=== PATIENT | male | born 1970 | race African-American/Black ===

== ENCOUNTER 2017-12-21 09:00 | Inpatient (IN) | payer BC ==
[~2017-12-21] VITALS: Ht 172.7 cm; Wt 86.6 kg
[2017-12-21] MEDS ORDERED: SODIUM CHLORIDE FLUSH 10ML SYR IVF ONE (09:30)
[2017-12-21] MEDS ORDERED: SODIUM CHLORIDE 0.9% 1,000ML IVBOLUS ONE (09:30)
[2017-12-21] MEDS ORDERED: HYDROmorphone 2 MG/ML, 1ML IVPush PRN (09:30)
[2017-12-21] MEDS ORDERED: HYDROmorphone 1 MG/ML, 1ML ONE (09:42)
[2017-12-21 10:10] LABS: BASOPHILS % (AUTO) 0 % (0-1); EOSINOPHILS # (AUTO) 0.02 x10^3/uL (0-0.4); EOSINOPHILS % (AUTO) 0 % (1-7); LYMPHOCYTES # (AUTO) 1.08 x10^3/uL (1-3.4); LYMPHOCYTES % (AUTO) 10 % (22-44); MD NO; MEAN CORPUSCULAR HGB CONC 33.9 g/dL (33.2-36.2); MEAN CORPUSCULAR VOLUME 85.6 fL (81-97); MEAN PLATELET VOLUME 9.5 fL (7.4-10.4); MONOCYTES # (AUTO) 0.96 x10^3/uL (0.2-0.8); MONOCYTES % (AUTO) 8 % (2-9); NEUTROPHILS % (AUTO) 82 % (42-75); PLATELET COUNT 225 x10^3/uL (130-400); RED BLOOD COUNT 5.02 x10^6/uL (4.38-5.82); RED CELL DISTRIBUTION WIDTH 13.2 % (9.4-14.8)
[2017-12-21 10:20] LABS: ALANINE AMINOTRANSFERASE 42 U/L (12-78); ALBUMIN 3.7 g/dL (3.4-5.0); ANION GAP 7 mmol/L (5-15); CALCIUM 8.8 mg/dL (8.5-10.1); CHLORIDE 105 mmol/L (98-107); CREATININE 1.21 mg/dL (0.7-1.3)
[2017-12-21 10:22] LABS: ALKALINE PHOSPHATASE 149 U/L (45-117); BILIRUBIN,TOTAL 0.7 mg/dL (0.2-1.0); TOTAL PROTEIN 8.5 g/dL (6.4-8.2)
[2017-12-21 10:30] LABS: CULTURE INDICATED? YES; MICROSCOPIC INDICATED
[2017-12-21] MEDS ORDERED: OMNIPAQUE 350 MG/ML, 100ML BOTTLE ONE (11:02)
[2017-12-21] MEDS ORDERED: AMLO10TA2 PO (12:19)
[2017-12-21] MEDS ORDERED: FENTANYL PF 100 MCG/2ML ONE (14:54)
[2017-12-21] MEDS ORDERED: MIDAZOLAM 1 MG/ML, 5ML ONE (14:55)
[2017-12-21] MEDS ORDERED: NALOXONE 1 MG/ML, 2ML ONE (14:55)
[2017-12-21] MEDS ORDERED: FLUMAZENIL 0.1 MG/1 ML, 5ML ONE (14:55)
[2017-12-21] MEDS ORDERED: ACETAMINOPHEN 325 MG TABLET PO PRN (15:00)
[2017-12-21] MEDS ORDERED: POLYETHYLENE GLYCOL 17 GM PACKET PO PRN (15:00)
[2017-12-21] MEDS ORDERED: DOCUSATE 100 MG CAPSULE PO PRN (15:00)
[2017-12-21] MEDS ORDERED: MORPHINE SULFATE 4 MG/ML, 1ML IVPush PRN (15:00)
[2017-12-21] MEDS ORDERED: LABETALOL 5MG/ML, 20ML IVPush PRN (15:00)
[2017-12-21] MEDS ORDERED: BISACODYL 10 MG SUPP PR PRN (15:00)
[2017-12-21] MEDS ORDERED: ONDANSETRON ODT 4 MG PO PRN (15:00)
[2017-12-21] MEDS ORDERED: LIDOCAINE-MPF 1%, 5ML ONE (15:08)
[2017-12-21] MEDS ORDERED: CEFTRIAXONE PMX 1GM/50ML 50 ML ONE (15:10)
[2017-12-21 16:00] VITALS: BP 165/78
[2017-12-21] MEDS: SODIUM CHLORIDE 0.9% 1,000 ML IV SCH ×2 (16:18→23:00)
[2017-12-21] MEDS: CEFTRIAXONE PMX 1GM/50ML 50 ML IV SCH (16:19)
[2017-12-21] MEDS: HYDROcodone/APAP 5/325 TABLET PO PRN ×3 (16:37→21:04)
[2017-12-21 16:42] VITALS: BP 165/77
[2017-12-21 18:30] VITALS: BP 141/75
[2017-12-22 00:41] VITALS: BP 116/55
[2017-12-22] MEDS: HYDROcodone/APAP 5/325 TABLET PO PRN ×5 (04:27→20:32)
[2017-12-22 05:15] LABS: BASOPHILS # (AUTO) 0.03 x10^3/uL (0-0.1); BASOPHILS % (AUTO) 0 % (0-1); EOSINOPHILS # (AUTO) 0.05 x10^3/uL (0-0.4); EOSINOPHILS % (AUTO) 1 % (1-7); LYMPHOCYTES # (AUTO) 0.91 x10^3/uL (1-3.4); LYMPHOCYTES % (AUTO) 9 % (22-44); MD NO; MEAN CORPUSCULAR HEMOGLOBIN 28.3 pg (27.5-34.5); MEAN CORPUSCULAR HGB CONC 33.4 g/dL (33.2-36.2); MEAN CORPUSCULAR VOLUME 84.7 fL (81-97); MEAN PLATELET VOLUME 9.7 fL (7.4-10.4); MONOCYTES # (AUTO) 0.87 x10^3/uL (0.2-0.8); MONOCYTES % (AUTO) 9 % (2-9); NEUTROPHILS # (AUTO) 8.29 x10^3/uL (1.8-6.8); NEUTROPHILS % (AUTO) 82 % (42-75); PLATELET COUNT 204 x10^3/uL (130-400); RED BLOOD COUNT 4.49 x10^6/uL (4.38-5.82); RED CELL DISTRIBUTION WIDTH 13.3 % (9.4-14.8)
[2017-12-22 05:18] LABS: ALANINE AMINOTRANSFERASE 33 U/L (12-78); ANION GAP 9 mmol/L (5-15); CALCIUM 8.3 mg/dL (8.5-10.1); CHLORIDE 104 mmol/L (98-107)
[2017-12-22 05:21] LABS: ALKALINE PHOSPHATASE 126 U/L (45-117); BILIRUBIN,TOTAL 0.8 mg/dL (0.2-1.0); TOTAL PROTEIN 7.6 g/dL (6.4-8.2)
[2017-12-22] MEDS: SODIUM CHLORIDE 0.9% 1,000 ML IV SCH ×3 (06:01→23:51)
[2017-12-22 07:03] VITALS: BP 160/79
[2017-12-22] MEDS: AMLODIPINE 5 MG TABLET PO SCH (08:12)
[2017-12-22 13:34] LABS: FOLATE LEVEL 18.7 ng/mL (3.1-17.5)
[2017-12-22 15:04] VITALS: BP 168/74
[2017-12-22] MEDS: CEFTRIAXONE PMX 1GM/50ML 50 ML IV SCH (15:05)
[2017-12-22 18:21] VITALS: BP_SYST 176; BP_SYST 177; BP_DIAS 71; BP_DIAS 75
[2017-12-22] MEDS: hydrALAzine 20 MG/ML, 1ML IVPush PRN (18:30)
[2017-12-23 00:22] VITALS: BP 188/81
[2017-12-23] MEDS: HYDROcodone/APAP 5/325 TABLET PO PRN ×6 (00:29→23:09)
[2017-12-23] MEDS: hydrALAzine 20 MG/ML, 1ML IVPush PRN ×3 (00:29→15:29)
[2017-12-23] MEDS ORDERED: OMNIPAQUE 350 MG/ML, 100ML BOTTLE ONE (00:50)
[2017-12-23 01:55] LABS: MD YES; MEAN CORPUSCULAR HEMOGLOBIN 28.1 pg (27.5-34.5); MEAN CORPUSCULAR HGB CONC 33.5 g/dL (33.2-36.2); MEAN CORPUSCULAR VOLUME 83.9 fL (81-97); MEAN PLATELET VOLUME 9.4 fL (7.4-10.4); PLATELET COUNT 229 x10^3/uL (130-400); RED BLOOD COUNT 4.64 x10^6/uL (4.38-5.82); RED CELL DISTRIBUTION WIDTH 12.8 % (9.4-14.8)
[2017-12-23 02:00] LABS: LYMPH#(MANUAL) 0.76 x10^3/uL (1-3.4); LYMPHS% (MANUAL) 7 % (22-44); MONOS% (MANUAL) 13 % (2-9); REACTIVE LYMPHS # (MANUAL) 0.43 x10^3/uL (0-0); REACTIVE LYMPHS % (MANUAL) 4 % (0-0); SEG#(MANUAL) 8.21 x10^3/uL (1.8-6.8); SEGS% (MANUAL) 76 % (42-75)
[2017-12-23 02:01] LABS: <PLATELET ESTIMATE> ADEQUATE; <RBC MORPHOLOGY> NORMAL; LARGE PLATELETS 1+
[2017-12-23 07:05] VITALS: BP 159/81
[2017-12-23 07:27] VITALS: BP 182/76
[2017-12-23] MEDS: AMLODIPINE 5 MG TABLET PO SCH (07:42)
[2017-12-23] MEDS ORDERED: MORPHINE SULFATE 4 MG/ML, 1ML IVPush PRN (09:00)
[2017-12-23] MEDS ORDERED: LISINOPRIL 10 MG TABLET PO SCH (09:00)
[2017-12-23] MEDS ORDERED: BISACODYL 10 MG SUPP PR PRN (09:30)
[2017-12-23] MEDS: ACETAMINOPHEN 325 MG TABLET PO SCH ×3 (09:36→21:00)
[2017-12-23] MEDS: SODIUM CHLORIDE 0.9% 1,000 ML IV SCH ×2 (09:37→19:01)
[2017-12-23 13:05] VITALS: BP 171/82
[2017-12-23] MEDS: CEFTRIAXONE PMX 1GM/50ML 50 ML IV SCH (14:55)
[2017-12-24] MEDS: SODIUM CHLORIDE 0.9% 1,000 ML IV SCH ×3 (03:06→21:33)
[2017-12-24] MEDS: ACETAMINOPHEN 325 MG TABLET PO SCH ×4 (03:06→21:00)
[2017-12-24] MEDS: HYDROcodone/APAP 5/325 TABLET PO PRN ×5 (03:06→19:13)
[2017-12-24 03:10] VITALS: BP 181/90
[2017-12-24] MEDS: hydrALAzine 20 MG/ML, 1ML IVPush PRN (03:14)
[2017-12-24 05:52] LABS: BASOPHILS # (AUTO) 0.02 x10^3/uL (0-0.1); BASOPHILS % (AUTO) 0 % (0-1); EOSINOPHILS # (AUTO) 0.09 x10^3/uL (0-0.4); EOSINOPHILS % (AUTO) 1 % (1-7); LYMPHOCYTES # (AUTO) 0.86 x10^3/uL (1-3.4); LYMPHOCYTES % (AUTO) 11 % (22-44); MD NO; MEAN CORPUSCULAR HEMOGLOBIN 28.6 pg (27.5-34.5); MEAN CORPUSCULAR HGB CONC 33.8 g/dL (33.2-36.2); MEAN CORPUSCULAR VOLUME 84.5 fL (81-97); MEAN PLATELET VOLUME 8.9 fL (7.4-10.4); MONOCYTES # (AUTO) 0.67 x10^3/uL (0.2-0.8); MONOCYTES % (AUTO) 9 % (2-9); NEUTROPHILS # (AUTO) 6.08 x10^3/uL (1.8-6.8); NEUTROPHILS % (AUTO) 79 % (42-75); PLATELET COUNT 276 x10^3/uL (130-400); RED BLOOD COUNT 4.77 x10^6/uL (4.38-5.82); RED CELL DISTRIBUTION WIDTH 12.9 % (9.4-14.8)
[2017-12-24 08:40] VITALS: BP 173/80
[2017-12-24] MEDS ORDERED: BISACODYL 10 MG SUPP PR ONE (09:00)
[2017-12-24] MEDS ORDERED: ISOSORBIDE DINITRATE 20 MG TABLET ONE (09:20)
[2017-12-24] MEDS: LISINOPRIL 20 MG TABLET PO SCH (09:25)
[2017-12-24] MEDS: ISOSORBIDE DINITRATE 10 MG TABLET PO SCH ×3 (09:25→21:32)
[2017-12-24] MEDS: AMLODIPINE 5 MG TABLET PO SCH (09:25)
[2017-12-24] MEDS: FERROUS SULFATE 325 MG TABLET PO SCH (09:26)
[2017-12-24 12:14] VITALS: BP 162/79
[2017-12-24] MEDS: CEFTRIAXONE PMX 1GM/50ML 50 ML IV SCH (14:54)
[2017-12-24 19:33] VITALS: BP 153/72
[2017-12-25] MEDS: HYDROcodone/APAP 5/325 TABLET PO PRN ×5 (00:13→21:03)
[2017-12-25 02:11] VITALS: BP 135/77
[2017-12-25] MEDS: ACETAMINOPHEN 325 MG TABLET PO SCH ×4 (03:00→21:00)
[2017-12-25] MEDS: SODIUM CHLORIDE 0.9% 1,000 ML IV SCH ×3 (05:10→23:00)
[2017-12-25 06:51] VITALS: BP 159/73
[2017-12-25] MEDS: AMLODIPINE 5 MG TABLET PO SCH (07:50)
[2017-12-25] MEDS: LISINOPRIL 20 MG TABLET PO SCH (07:51)
[2017-12-25] MEDS: ISOSORBIDE DINITRATE 10 MG TABLET PO SCH ×3 (07:51→21:04)
[2017-12-25 12:20] VITALS: BP 154/76
[2017-12-25] MEDS: CEFTRIAXONE PMX 1GM/50ML 50 ML IV SCH (15:00)
[2017-12-25] MEDS ORDERED: OMNIPAQUE 350 MG/ML, 100ML BOTTLE ONE (16:50)
[2017-12-25 20:38] VITALS: BP 167/73
[2017-12-26] MEDS: ACETAMINOPHEN 325 MG TABLET PO SCH ×2 (03:00→09:47)
[2017-12-26 04:51] VITALS: BP 146/76
[2017-12-26] MEDS: SODIUM CHLORIDE 0.9% 1,000 ML IV SCH (05:48)
[2017-12-26] MEDS: HYDROcodone/APAP 5/325 TABLET PO PRN (06:50)
[2017-12-26 08:47] VITALS: BP 146/79
[2017-12-26] MEDS: ISOSORBIDE DINITRATE 10 MG TABLET PO SCH (09:47)
[2017-12-26] MEDS: AMLODIPINE 5 MG TABLET PO SCH (09:47)
[2017-12-26] MEDS: FERROUS SULFATE 325 MG TABLET PO SCH (09:47)
[2017-12-26] MEDS: LISINOPRIL 20 MG TABLET PO SCH (09:48)
[2017-12-26] MEDS ORDERED: HYDR-3341 PO (12:37)
[2017-12-26] MEDS ORDERED: LISI-170 PO (12:37)
[2017-12-26] MEDS ORDERED: FERR-51 PO (12:37)
[2017-12-26 13:46] VITALS: BP 148/79
== END 2017-12-26 14:15 | disposition home or self-care (01) | DRG 689 ==
LOC: ED 09:32 → EDIP 13:23 → 4NOR 16:03 → DCLOUNGE 12-26 13:53
PROVIDERS: ADMIT Hospitalist; ATTEND Hospitalist
PROC: 0T903ZZ Drainage of Right Kidney, Percutaneous Approach (ICD-10-PCS; principal; 2017-12-21)
DX: N15.1 Renal and perinephric abscess (principal); K68.19 Other retroperitoneal abscess; D50.9 Iron deficiency anemia, unspecified; F12.90 Cannabis use, unspecified, uncomplicated; I10 Essential (primary) hypertension; K59.00 Constipation, unspecified
CPT/HCPCS: 10160; 36415; 49406; 74177; 80053; 81001; 82274; 82607; 82746; 83540; 83550; 83605; 83690; 84145; 85025; 87040; 87070; 87075; 87081; 87086; 87205; 96374; 99156; 99157; J0696; J1170; J2250; J3010; Q9967; J0360; J2310; J7030

== ENCOUNTER 2017-12-28 14:06 | Emergency (ER) | payer BC ==
[~2017-12-28] VITALS: Ht 172.7 cm; Wt 87.5 kg
[~2017-12-28 14:06] MED LIST: AMLO10TA2 PO; FERR-51 PO; HYDR-3341 PO; LISI-170 PO
[2017-12-28] MEDS ORDERED: DEXAMETHASONE 4 MG TABLET ONE (15:47)
[2017-12-28] MEDS ORDERED: DIPHENHYDRAMINE 25 MG CAPSULE ONE (15:47)
[2017-12-28 15:52] VITALS: BP 149/75
[2017-12-28] MEDS ORDERED: DIPHENHYDRAMINE 25 MG CAPSULE PO ONE (16:00)
[2017-12-28] MEDS ORDERED: DEXAMETHASONE 4 MG TABLET PO ONE (16:00)
== END 2017-12-28 16:05 | disposition home or self-care (01) ==
LOC: ED 15:50
DX: T78.3XXA Angioneurotic edema, initial encounter (principal); T46.4X5A Adverse effect of angiotensin-converting-enzyme inhibitors, initial encounter; Y92.89 Other specified places as the place of occurrence of the external cause; I10 Essential (primary) hypertension
CPT/HCPCS: 99283; Q0163